=== PATIENT | male | born 1990 | race American Indian/Alaskan Native ===

== ENCOUNTER 2022-01-15 04:02 | Emergency (ER) | payer SELFPAY ==
[2022-01-15] MEDS ORDERED: IPRATROPIUM/ALBUTEROL SULFATE 3 ML AMPUL.NEB IH ONE (05:10)
[2022-01-15 05:21] VITALS: BP 174/100
[2022-01-15] MEDS ORDERED: IPRATROPIUM 0.02% NEBU 2.5 ML IH ONE (05:23)
[2022-01-15] MEDS ORDERED: ALBUTEROL 2.5 MG/3 ML NEBU IH ONE (05:23)
[2022-01-15] MEDS ORDERED: methylPREDNISolone Sod Succinate 125 MG/2 ML INJ IM ONE (05:28)
--- NOTE | 2022-01-15 06:47 | Emergency Department Report ---
ED Shortness of Breath HPI - General Chief Complaint: Adult Asthma Stated Complaint: CANNOT BREATHE Source: patient Mode of arrival: Ambulatory Limitations: No Limitations - History of Present Illness Initial Comments: Patient is a 31-year-old -[place] male with a history of tobacco abuse and asthma who presents to the ED with complaint of shortness of breath, nasal and sinus congestion, persistent dry cough with chest tightness for the last 3 days, worse in the last 6 hours. Patient states that he was unable to sleep because of shortness of breath and persistent dry cough with chest tightness. Patient states that he has used all his albuterol inhaler and had no other rescue inhaler to use at home. Patient states that he also ran out of his albuterol nebulizers at home about 6-month ago and has never been able to feel that anyway because he has not followed up with his primary care physician. Patient denies fever, chills, nausea and vomiting, hemoptysis, sore throat, dizziness, syncope, or headache MD Complaint: shortness of breath, cough, "asthma attack" -: Sudden, days(s) (3) Severity: moderate Pain Scale: 5 Quality: other (Chest tightness) Consistency: intermittent Improves With: nothing Worsens With: exertion, movement, coughing Known History Of: asthma Context: allergen exposure, smoke/fume exposure Associated Symptoms: cough Treatments Prior to Arrival: bronchodilator - Related Data Home Oxygen Therapy: No Previous Rx's Medication Instructions Recorded Last Taken Type ALBUTEROL NEB's [Proventil 0.083% 3 ml IH Q6H PRN #75 ml 01/15/22 Unknown Rx NEBS] Albuterol Sulfate [Proair 1 - 2 puff IH Q6H PRN #1 inh 01/15/22 Unknown Rx Respiclick] Benzonatate [Tessalon Perles] 100 mg PO Q8HR #30 cap 01/15/22 Unknown Rx methylPREDNISolone [Medrol 4MG 4 mg PO DAILY #21 tab 01/15/22 Unknown Rx DOSEPAK (21 tabs)] Allergies Allergy/AdvReac Type Severity Reaction Status Date / Time shellfish derived Allergy Hives Verified 01/15/22 05:10 ED Review of Systems ROS: Stated complaint: CANNOT BREATHE Other details as noted in HPI Constitutional: denies: chills, fever Eyes: denies: eye pain, eye discharge, vision change ENT: congestion. denies: ear pain, throat pain Respiratory: cough, shortness of breath, wheezing Cardiovascular: chest pain (Chest tightness). denies: palpitations Endocrine: no symptoms reported Gastrointestinal: denies: abdominal pain, nausea, diarrhea Genitourinary: denies: urgency, dysuria Musculoskeletal: denies: back pain, joint swelling, arthralgia Skin: denies: rash, lesions Neurological: denies: headache, weakness, paresthesias Psychiatric: denies: anxiety, depression Hematological/Lymphatic: denies: easy bleeding, easy bruising ED Past Medical Hx - Past Medical History Previous Medical History?: Yes Hx Asthma: Yes - Surgical History Past Surgical History?: No - Social History Smoking Status: Never Smoker Substance Use Type: None - Medications Home Medications: Home Medications Medication Instructions Recorded Confirmed Last Taken Type ALBUTEROL NEB's [Proventil 0.083% 3 ml IH Q6H PRN #75 ml 01/15/22 Unknown Rx NEBS] Albuterol Sulfate [Proair 1 - 2 puff IH Q6H PRN #1 inh 01/15/22 Unknown Rx Respiclick] Benzonatate [Tessalon Perles] 100 mg PO Q8HR #30 cap 01/15/22 Unknown Rx methylPREDNISolone [Medrol 4MG 4 mg PO DAILY #21 tab 01/15/22 Unknown Rx DOSEPAK (21 tabs)] ED Physical Exam - General Limitations: No Limitations General appearance: alert, in no apparent distress - Head Head exam: Present: atraumatic, normocephalic, normal inspection - Eye Eye exam: Present: normal appearance, PERRL, EOMI Pupils: Present: normal accommodation - ENT ENT exam: Present: normal exam, normal orophraynx, mucous membranes moist, TM's normal bilaterally, normal external ear exam - Neck Neck exam: Present: normal inspection, full ROM. Absent: tenderness - Respiratory Respiratory exam: Present: wheezes (Mild diffuse coarse wheezes throughout). Absent: normal lung sounds bilaterally, respiratory distress, rales, rhonchi, chest wall tenderness, accessory muscle use, decreased breath sounds, prolonged expiratory - Cardiovascular Cardiovascular Exam: Present: regular rate, normal rhythm, normal heart sounds. Absent: systolic murmur, diastolic murmur, rubs, gallop - GI/Abdominal GI/Abdominal exam: Present: soft, normal bowel sounds. Absent: tenderness, guarding, rebound, hyperactive bowel sounds, hypoactive bowel sounds, organomegaly - Extremities Exam Extremities exam: Present: normal inspection, full ROM, normal capillary refill - Back Exam Back exam: Present: normal inspection, full ROM. Absent: tenderness, CVA tenderness (R), CVA tenderness (L), muscle spasm, paraspinal tenderness, vertebral tenderness - Neurological Exam Neurological exam: Present: alert, oriented X3, CN II-XII intact, normal gait, reflexes normal - Psychiatric Psychiatric exam: Present: normal affect, normal mood - Skin Skin exam: Present: warm, dry, intact, normal color. Absent: rash ED Course Vital Signs 01/15/22 01/15/22 05:07 06:03 Temperature 98.5 F Pulse Rate 98 H Pulse Rate [ 98 H Bilateral Throughout] Respiratory 18 Rate Respiratory 20 Rate [Bilateral Throughout] Blood Pressure 174/100 O2 Sat by Pulse 96 Oximetry ED Medical Decision Making - Medical Decision Making This is a 31-year-old -[place] male with a history of tobacco abuse and asthma who presents to the ED with complaint of shortness of breath, nasal and sinus congestion, persistent dry cough with chest tightness for the last 3 days, worse in the last 6 hours. Patient states that he was unable to sleep because o f shortness of breath and persistent dry cough with chest tightness. Patient states that he has used all his albuterol inhaler and had no other rescue inhaler to use at home. Patient states that he also ran out of his albuterol nebulizers at home about 6-month ago and has never been able to feel that anyway because he has not followed up with his primary care physician. In the ED, patient is alert and oriented x3 and is not in any distress. Patient was treated in the ED with DuoNeb and Solu-Medrol 125 mg intramuscular injection. Patient however declined chest x-ray. On reevaluation, patient felt better and was discharged home on medications including albuterol nebulizers and inhalers as well as steroid Dosepak. Patient was advised to follow-up with his primary care physician in 5 to 7 days for reevaluation or return to the ED immediately if symptoms get worse. - Differential Diagnosis Asthma; bronchitis; pneumonia; URI; rhinitis; Critical care attestation.: If time is entered above; I have spent that time in minutes in the direct care of this critically ill patient, excluding procedure time. ED Disposition Clinical Impression: Acute bronchitis with asthma with acute exacerbation, Shortness of breath Disposition: 01 HOME / SELF CARE / HOMELESS Is pt being admited?: No Does the pt Need Aspirin: No Condition: Stable Instructions: Shortness of Breath, Adult, [id number], Cough, Adult, [id number], Acute Bronchitis, Adult, [id number], Asthma, Adult, [id number] Additional Instructions: Take medication with food, drink plenty of fluids and follow-up with your primary care physician in 5 to 7 days for reevaluation. Return to the ED immediately if symptoms get worse. Prescriptions: methylPREDNISolone [Medrol 4MG DOSEPAK (21 tabs)] 4 mg PO DAILY #21 tab Albuterol Sulfate [Proair Respiclick] 1 - 2 puff IH Q6H PRN #1 inh PRN Reason: Shortness Of Breath ALBUTEROL NEB's [Proventil 0.083% NEBS] 3 ml IH Q6H PRN #75 ml PRN Reason: Wheezing Benzonatate [Tessalon Perles] 100 mg PO Q8HR #30 cap Referrals: BATSHEVA STEEL MD [Staff Physician] - 7-10 days Time of Disposition: 06:50 Print Language: INDONESIAN
== END 2022-01-15 14:51 | disposition home or self-care (01) ==
LOC: ED 04:02
DX: J20.9 Acute bronchitis, unspecified (principal); J45.901 Unspecified asthma with (acute) exacerbation; R06.02 Shortness of breath; Z91.013 Allergy to seafood
CPT/HCPCS: 94640; 96372; 99282; J2930; 94644